=== PATIENT | male | born 1995 | race Hispanic/Latino ===

== ENCOUNTER 2017-11-11 20:37 | Emergency (ER) | payer BC ==
[~2017-11-11] VITALS: Ht 185.4 cm; Wt 79.8 kg
[2017-11-11] MEDS ORDERED: NASONEX17 GM (21:25)
[2017-11-11] MEDS ORDERED: TESSALON PERLE100 MG PO (21:25)
[2017-11-11] MEDS ORDERED: XYZAL5 MG PO (21:25)
== END 2017-11-11 21:45 | disposition home or self-care (01) ==
LOC: FSED 20:37
DX: I10 Essential (primary) hypertension (principal); T48.5X5A Adverse effect of other anti-common-cold drugs, initial encounter
CPT/HCPCS: 99283